=== PATIENT | male | born 1970 | race Asian ===

== ENCOUNTER 2016-08-27 08:59 | Emergency (ER) | payer MEDICAID ==
[~2016-08-27] VITALS: Ht 165.1 cm; Wt 66.5 kg
[~2016-08-27 08:59] MED LIST: ACET325T26 PO; CEPH-368 PO; HYDR-3240 PO; NEO/5DRO2 EACHEYE; NEOM10SO
[2016-08-27] MEDS ORDERED: AMPICILLIN/SULBACTAM 3 GM in SODIUM CHLORIDE 0.9% 100 ML IVPB ONE (10:00)
[2016-08-27] MEDS ORDERED: LIDOCAINE 1%-EPI 1:100K, 30ML ONE (10:04)
[2016-08-27 11:33] VITALS: BP 132/78
== END 2016-08-27 11:37 | disposition home or self-care (01) ==
LOC: ED 11:31
DX: K04.7 Periapical abscess without sinus (principal)
CPT/HCPCS: 41800; 96365; 99284; J0295

== ENCOUNTER 2016-11-05 08:10 | Emergency (ER) | payer MEDICAID ==
[~2016-11-05] VITALS: Ht 167.6 cm; Wt 68.0 kg
[2016-11-05 08:11] VITALS: BP 128/89
== END 2016-11-05 09:13 | disposition home or self-care (01) ==
LOC: ED 08:34
DX: L03.213 Periorbital cellulitis (principal)
CPT/HCPCS: 99283

== ENCOUNTER 2016-11-06 08:39 | Emergency (ER) | payer MEDICAID ==
[~2016-11-06] VITALS: Ht 170.2 cm; Wt 68.5 kg
[2016-11-06] MEDS ORDERED: CEFTRIAXONE 1,000 MG ONE (10:14)
[2016-11-06 10:22] VITALS: BP 120/72
[2016-11-06] MEDS ORDERED: CEFTRIAXONE 1,000 MG IM ONE (10:30)
== END 2016-11-06 10:40 | disposition home or self-care (01) ==
LOC: ED 09:55
DX: L03.213 Periorbital cellulitis (principal)
CPT/HCPCS: 96372; 99283; J0696

== ENCOUNTER 2017-01-27 08:14 | Emergency (ER) | payer MEDICAID ==
[~2017-01-27] VITALS: Ht 165.1 cm; Wt 66.0 kg
[2017-01-27] MEDS ORDERED: SODIUM CHLORIDE 0.9% 1,000 ML IV ONE (08:42)
[2017-01-27] MEDS ORDERED: SODIUM CHLORIDE 0.9% 1,000ML IVBOLUS ONE (09:00)
[2017-01-27 09:12] LABS: HEMATOCRIT 38.1 % (39.2-51.8); HEMOGLOBIN 12.6 g/dL (13.7-18.0); WHITE BLOOD COUNT 6.2 x10^3/uL (3.4-10)
[2017-01-27 09:24] LABS: BLOOD UREA NITROGEN 17 mg/dL (7-18)
[2017-01-27 12:21] VITALS: BP 139/74
== END 2017-01-27 12:28 | disposition home or self-care (01) ==
LOC: ED 08:51
DX: L03.116 Cellulitis of left lower limb (principal); M86.679 Other chronic osteomyelitis, unspecified ankle and foot
CPT/HCPCS: 36415; 73630; 80048; 82040; 83605; 84145; 85025; 87040; 96360; 99285; J7030

== ENCOUNTER 2017-10-31 09:44 | Emergency (ER) | payer MEDICAID ==
[~2017-10-31] VITALS: Ht 167.6 cm; Wt 77.7 kg
[2017-10-31] MEDS ORDERED: PROPARACAINE OPHTH 0.5%, 15ML ONE (10:07)
[2017-10-31] MEDS ORDERED: LIDOCAINE-MPF 2% ,5ML ONE (10:28)
[2017-10-31] MEDS ORDERED: FLUORESCEIN OPHTHALMIC 1 MG STRIP EACHEYE ONE (10:30)
[2017-10-31] MEDS ORDERED: LIDOCAINE 2%, 20ML SQ ONE (10:30)
[2017-10-31] MEDS ORDERED: PROPARACAINE OPHTH 0.5%, 15ML EACHEYE ONE (10:30)
[2017-10-31] MEDS ORDERED: BACITRACIN ZINC OINT 500U/GM, 0.9 GM ONE (10:52)
[2017-10-31 11:29] VITALS: BP 106/77
== END 2017-10-31 11:38 | disposition home or self-care (01) ==
LOC: ED 11:17
DX: L02.01 Cutaneous abscess of face (principal); T23.211A Burn of second degree of right thumb (nail), initial encounter; T31.0 Burns involving less than 10% of body surface; F17.200 Nicotine dependence, unspecified, uncomplicated; X08.8XXA Exposure to other specified smoke, fire and flames, initial encounter; Y93.89 Activity, other specified; Y99.8 Other external cause status; Y92.89 Other specified places as the place of occurrence of the external cause
CPT/HCPCS: 10060; 99283; J3490

== ENCOUNTER 2018-01-12 13:36 | Inpatient (IN) | payer MEDICAID ==
[~2018-01-12] VITALS: Ht 165.1 cm; Wt 79.8 kg
[2018-01-12] MEDS ORDERED: CLINDAMYCIN PMX 600MG/50ML 50 ML IVPB ONE (15:00)
[2018-01-12 15:12] LABS: BASOPHILS # (AUTO) 0.03 x10^3/uL (0-0.1); BASOPHILS % (AUTO) 0 % (0-1); EOSINOPHILS # (AUTO) 0.16 x10^3/uL (0-0.4); EOSINOPHILS % (AUTO) 2 % (1-7); LYMPHOCYTES # (AUTO) 1.44 x10^3/uL (1-3.4); LYMPHOCYTES % (AUTO) 16 % (22-44); MD NO; MEAN CORPUSCULAR HEMOGLOBIN 31.8 pg (27.5-34.5); MEAN CORPUSCULAR HGB CONC 33.7 g/dL (33.2-36.2); MEAN CORPUSCULAR VOLUME 94.6 fL (81-97); MEAN PLATELET VOLUME 7.1 fL (7.4-10.4); MONOCYTES # (AUTO) 0.56 x10^3/uL (0.2-0.8); MONOCYTES % (AUTO) 6 % (2-9); NEUTROPHILS # (AUTO) 6.66 x10^3/uL (1.8-6.8); NEUTROPHILS % (AUTO) 75 % (42-75); PLATELET COUNT 259 x10^3/uL (130-400); RED BLOOD COUNT 4.55 x10^6/uL (4.38-5.82); RED CELL DISTRIBUTION WIDTH 13.7 % (9.4-14.8)
[2018-01-12 15:23] LABS: ALBUMIN 3.5 g/dL (3.4-5.0); ANION GAP 4 mmol/L (5-15); CALCIUM 8.3 mg/dL (8.5-10.1); CHLORIDE 106 mmol/L (98-107); CREATININE 0.97 mg/dL (0.7-1.3)
[2018-01-12] MEDS ORDERED: CLINDAMYCIN PMX 600MG/50ML 50 ML ONE (15:56)
[2018-01-12] MEDS ORDERED: OMNIPAQUE 350 MG/ML, 100ML BOTTLE ONE (16:38)
[2018-01-12] MEDS ORDERED: DOCUSATE 100 MG CAPSULE PO PRN (18:00)
[2018-01-12] MEDS ORDERED: POLYETHYLENE GLYCOL 17 GM PACKET PO PRN (18:00)
[2018-01-12] MEDS ORDERED: ONDANSETRON ODT 4 MG PO PRN (18:00)
[2018-01-12] MEDS ORDERED: LABETALOL 5MG/ML, 20ML IVPush PRN (18:00)
[2018-01-12] MEDS ORDERED: hydrALAzine 20 MG/ML, 1ML IVPush PRN (18:00)
[2018-01-12] MEDS ORDERED: ONDANSETRON 2MG/ML, 2ML IVPush PRN (18:00)
[2018-01-12] MEDS ORDERED: BISACODYL 10 MG SUPP PR PRN (18:00)
[2018-01-12 19:57] VITALS: BP 126/89
[2018-01-12] MEDS ORDERED: [UNRECOGNIZED DRUG - OTHER] LEFT EAR SCH (21:00)
[2018-01-12] MEDS: HEPARIN 5,000 UNITS/ML, 1ML SQ SCH (22:39)
[2018-01-12] MEDS: NEO/POLY/HC EAR SUSP 10ML LEFT EAR SCH (22:39)
[2018-01-12] MEDS: LACTOBACILLUS 1GM/ PACKET PO SCH (22:39)
[2018-01-12] MEDS: CEFEPIME 2 GM in DEXTROSE 5% 100 ML IV SCH (22:39)
[2018-01-13] MEDS: CLINDAMYCIN PMX 600MG/50ML 50 ML IV SCH ×3 (00:26→16:53)
[2018-01-13 00:33] VITALS: BP 120/82
[2018-01-13 05:59] LABS: BASOPHILS # (AUTO) 0.05 x10^3/uL (0-0.1); BASOPHILS % (AUTO) 1 % (0-1); EOSINOPHILS # (AUTO) 0.41 x10^3/uL (0-0.4); EOSINOPHILS % (AUTO) 6 % (1-7); LYMPHOCYTES # (AUTO) 2.18 x10^3/uL (1-3.4); LYMPHOCYTES % (AUTO) 30 % (22-44); MD NO; MEAN CORPUSCULAR HEMOGLOBIN 32.7 pg (27.5-34.5); MEAN CORPUSCULAR HGB CONC 34.1 g/dL (33.2-36.2); MEAN CORPUSCULAR VOLUME 95.8 fL (81-97); MEAN PLATELET VOLUME 7.3 fL (7.4-10.4); MONOCYTES % (AUTO) 8 % (2-9); NEUTROPHILS % (AUTO) 55 % (42-75); PLATELET COUNT 259 x10^3/uL (130-400); RED BLOOD COUNT 4.38 x10^6/uL (4.38-5.82); RED CELL DISTRIBUTION WIDTH 14.3 % (9.4-14.8)
[2018-01-13] MEDS: HEPARIN 5,000 UNITS/ML, 1ML SQ SCH ×3 (06:00→22:47)
[2018-01-13 06:02] LABS: CHLORIDE 105 mmol/L (98-107)
[2018-01-13 06:11] LABS: ALANINE AMINOTRANSFERASE 32 U/L (12-78); ALBUMIN 3.3 g/dL (3.4-5.0); ALKALINE PHOSPHATASE 75 U/L (45-117); ANION GAP 3 mmol/L (5-15); BILIRUBIN,TOTAL 0.1 mg/dL (0.2-1.0); CALCIUM 8.5 mg/dL (8.5-10.1); CREATININE 0.94 mg/dL (0.7-1.3); TOTAL PROTEIN 7.7 g/dL (6.4-8.2)
[2018-01-13] MEDS: NEO/POLY/HC EAR SUSP 10ML LEFT EAR SCH ×3 (06:21→16:54)
[2018-01-13] MEDS: LACTOBACILLUS 1GM/ PACKET PO SCH ×3 (07:51→20:10)
[2018-01-13] MEDS: CEFEPIME 2 GM in DEXTROSE 5% 100 ML IV SCH ×2 (07:51→20:11)
[2018-01-13 08:22] VITALS: BP 136/88
[2018-01-13 12:05] LABS: HEMOGLOBIN A1C 5.3 % (4.2-6.3)
[2018-01-13] MEDS: ACETAMINOPHEN 325 MG TABLET PO PRN (14:35)
[2018-01-13 14:38] VITALS: BP 127/89
[2018-01-13 19:58] VITALS: BP 127/84
[2018-01-14 03:01] VITALS: BP 125/72
[2018-01-14] MEDS: HEPARIN 5,000 UNITS/ML, 1ML SQ SCH ×3 (05:49→20:25)
[2018-01-14] MEDS: ACETAMINOPHEN 325 MG TABLET PO PRN (08:07)
[2018-01-14] MEDS: CEFEPIME 2 GM in DEXTROSE 5% 100 ML IV SCH ×2 (08:08→20:22)
[2018-01-14] MEDS: LACTOBACILLUS 1GM/ PACKET PO SCH ×3 (08:08→20:24)
[2018-01-14 08:14] VITALS: BP 127/81
[2018-01-14 09:06] VITALS: BP 122/82
[2018-01-14 13:10] VITALS: BP 127/85
[2018-01-14 19:45] VITALS: BP 118/80
[2018-01-14] MEDS: AMPICILLIN/SULBACTAM 3 GM in SODIUM CHLORIDE 0.9% 100 ML IV SCH (22:11)
[2018-01-15 00:37] VITALS: BP 124/85
[2018-01-15 01:00] LABS: CLOSTRIDIUM DIFFICILE ANTIGEN NEGATIVE; CLOSTRIDIUM DIFFICILE TOXIN NEGATIVE (Negative)
[2018-01-15] MEDS: AMPICILLIN/SULBACTAM 3 GM in SODIUM CHLORIDE 0.9% 100 ML IV SCH ×3 (05:24→22:15)
[2018-01-15] MEDS: HEPARIN 5,000 UNITS/ML, 1ML SQ SCH ×3 (05:24→22:15)
[2018-01-15 08:18] VITALS: BP 109/76
[2018-01-15] MEDS: LACTOBACILLUS 1GM/ PACKET PO SCH ×3 (09:14→22:15)
[2018-01-15] MEDS: ACETAMINOPHEN 325 MG TABLET PO PRN (11:18)
[2018-01-15 12:53] LABS: FOLATE LEVEL 17.1 ng/mL (3.1-17.5)
[2018-01-15 14:00] VITALS: BP 111/74
[2018-01-15 19:35] VITALS: BP 112/71
[2018-01-16 01:23] VITALS: BP 110/74
[2018-01-16] MEDS: AMPICILLIN/SULBACTAM 3 GM in SODIUM CHLORIDE 0.9% 100 ML IV SCH ×3 (05:30→22:28)
[2018-01-16] MEDS: HEPARIN 5,000 UNITS/ML, 1ML SQ SCH ×3 (05:36→22:28)
[2018-01-16 06:59] VITALS: BP 116/75
[2018-01-16] MEDS: LACTOBACILLUS 1GM/ PACKET PO SCH ×3 (10:26→22:27)
[2018-01-16 12:13] VITALS: BP 119/61
[2018-01-16] MEDS: ACETAMINOPHEN 325 MG TABLET PO PRN (14:42)
[2018-01-16 19:03] VITALS: BP 107/78
[2018-01-17 01:31] VITALS: BP 124/80
[2018-01-17] MEDS: AMPICILLIN/SULBACTAM 3 GM in SODIUM CHLORIDE 0.9% 100 ML IV SCH ×3 (05:35→22:46)
[2018-01-17] MEDS: HEPARIN 5,000 UNITS/ML, 1ML SQ SCH ×3 (05:35→19:32)
[2018-01-17 07:42] VITALS: BP 132/90
[2018-01-17] MEDS: ACETAMINOPHEN 325 MG TABLET PO PRN (09:15)
[2018-01-17] MEDS: LACTOBACILLUS 1GM/ PACKET PO SCH ×3 (09:15→20:55)
[2018-01-17 12:47] VITALS: BP 120/85
[2018-01-17] MEDS ORDERED: FENTANYL PF 250 MCG/5ML ONE (16:20)
[2018-01-17] MEDS ORDERED: MIDAZOLAM 1 MG/ML, 2ML ONE (16:20)
[2018-01-17] MEDS ORDERED: ROCURONIUM 10MG/ML,5ML ONE (16:21)
[2018-01-17] MEDS ORDERED: PROPOFOL 10 MG/ML, 20ML ONE (16:22)
[2018-01-17] MEDS ORDERED: CEFAZOLIN 1,000 MG ONE ×2 (16:23)
[2018-01-17] MEDS ORDERED: NEOSTIGMINE 1 MG/ML, 10ML ONE (16:23)
[2018-01-17] MEDS ORDERED: WATER-INJECTION,STERILE 10 ML IV ONE (16:23)
[2018-01-17] MEDS ORDERED: NEO/BACI/POLY/HC OINT 15GM ONE (16:35)
[2018-01-17] MEDS ORDERED: LIDOCAINE 1%-EPI 1:100K, 30ML ONE (16:35)
[2018-01-17] MEDS ORDERED: OXYMETAZOLINE NASAL SPRAY 0.05%, 15ML ONE (16:36)
[2018-01-17] MEDS ORDERED: FENTANYL PF 100 MCG/2ML IV PRN (17:00)
[2018-01-17] MEDS ORDERED: MEPERIDINE/PF 25MG/0.5ML IVPush PRN (17:00)
[2018-01-17] MEDS ORDERED: HYDROmorphone 1 MG/ML, 1ML IV PRN (17:00)
[2018-01-17] MEDS ORDERED: ACETAMINOPHEN 325 MG TABLET PO PRN (17:00)
[2018-01-17] MEDS ORDERED: LABETALOL 5MG/ML, 20ML IV PRN (17:00)
[2018-01-17] MEDS ORDERED: PROMETHAZINE 12.5 MG SUPP PR PRN (17:00)
[2018-01-17] MEDS ORDERED: ONDANSETRON ODT 8 MG PO PRN (17:00)
[2018-01-17] MEDS ORDERED: PROMETHAZINE 25 MG SUPP PR PRN (17:00)
[2018-01-17] MEDS ORDERED: PROMETHAZINE 25 MG/ML, 1ML IV PRN (17:00)
[2018-01-17] MEDS ORDERED: MORPHINE SULFATE 4 MG/ML, 1ML IVPush PRN (17:00)
[2018-01-17] MEDS ORDERED: ONDANSETRON 2MG/ML, 2ML IV PRN (17:00)
[2018-01-17] MEDS ORDERED: OXYcodone 5 MG/5 ML ORAL.SOL UDC PO PRN ×2 (17:00→19:00)
[2018-01-17] MEDS ORDERED: hydrALAzine 20 MG/ML, 1ML IV PRN (17:00)
[2018-01-17] MEDS ORDERED: SUGAMMADEX 200 MG/2 ML IVPush ONE (17:53)
[2018-01-17] MEDS ORDERED: ACETAMINOPHEN 650 MG/20.3 ML UDC ONE (18:21)
[2018-01-17] MEDS ORDERED: OXYcodone 5 MG/5 ML ORAL.SOL UDC ONE (18:22)
[2018-01-17 19:36] VITALS: BP 111/66
[2018-01-18 01:01] VITALS: BP 120/69
[2018-01-18 05:30] LABS: BASOPHILS # (AUTO) 0.05 x10^3/uL (0-0.1); BASOPHILS % (AUTO) 1 % (0-1); EOSINOPHILS # (AUTO) 0.27 x10^3/uL (0-0.4); EOSINOPHILS % (AUTO) 3 % (1-7); LYMPHOCYTES # (AUTO) 1.96 x10^3/uL (1-3.4); LYMPHOCYTES % (AUTO) 23 % (22-44); MD NO; MEAN CORPUSCULAR HEMOGLOBIN 32.3 pg (27.5-34.5); MEAN CORPUSCULAR HGB CONC 34.2 g/dL (33.2-36.2); MEAN CORPUSCULAR VOLUME 94.5 fL (81-97); MEAN PLATELET VOLUME 7.1 fL (7.4-10.4); MONOCYTES # (AUTO) 0.74 x10^3/uL (0.2-0.8); MONOCYTES % (AUTO) 9 % (2-9); NEUTROPHILS # (AUTO) 5.36 x10^3/uL (1.8-6.8); NEUTROPHILS % (AUTO) 64 % (42-75); PLATELET COUNT 259 x10^3/uL (130-400); RED BLOOD COUNT 4.76 x10^6/uL (4.38-5.82); RED CELL DISTRIBUTION WIDTH 13.4 % (9.4-14.8)
[2018-01-18 05:38] LABS: ALBUMIN 3.6 g/dL (3.4-5.0); ANION GAP 5 mmol/L (5-15); CALCIUM 8.5 mg/dL (8.5-10.1); CHLORIDE 102 mmol/L (98-107); CREATININE 0.94 mg/dL (0.7-1.3)
[2018-01-18 06:36] VITALS: BP 109/76
[2018-01-18] MEDS: AMPICILLIN/SULBACTAM 3 GM in SODIUM CHLORIDE 0.9% 100 ML IV SCH (06:43)
[2018-01-18] MEDS: HEPARIN 5,000 UNITS/ML, 1ML SQ SCH (06:44)
[2018-01-18] MEDS: LACTOBACILLUS 1GM/ PACKET PO SCH (09:25)
[2018-01-18] MEDS ORDERED: AMOX1TAB64 PO (09:34)
== END 2018-01-18 12:13 | disposition home or self-care (01) | DRG 603 ==
LOC: ED 17:17 → EDIP 17:18 → ED 18:43 → 3NE 18:58
PROVIDERS: ADMIT Internal Medicine; ATTEND Hospitalist
PROC: 0CDWXZ1 Extraction of Upper Tooth, Multiple, External Approach (ICD-10-PCS; principal; 2018-01-17 17:00)
DX: L03.211 Cellulitis of face (principal); D63.8 Anemia in other chronic diseases classified elsewhere; E61.0 Copper deficiency; G62.9 Polyneuropathy, unspecified; H60.90 Unspecified otitis externa, unspecified ear; H66.92 Otitis media, unspecified, left ear; M21.372 Foot drop, left foot; H70.12 Chronic mastoiditis, left ear; I10 Essential (primary) hypertension; K02.9 Dental caries, unspecified; K04.7 Periapical abscess without sinus; K05.30 Chronic periodontitis, unspecified; F17.210 Nicotine dependence, cigarettes, uncomplicated; N30.90 Cystitis, unspecified without hematuria; Z87.01 Personal history of pneumonia (recurrent); Z98.2 Presence of cerebrospinal fluid drainage device
CPT/HCPCS: 36415; 70100; 70450; 70480; 70487; 80048; 80053; 82040; 82390; 82525; 82607; 82746; 83036; 83735; 85025; 85651; 86140; 86592; 87040; 87070; 87077; 87186; 87205; 87324; 93922; 96365; 96366; J0295; J0690; J1644; J2250; J2704; J2710; J3010; J3490; Q9967; 92523-GN